=== PATIENT | male | born 1945 | race Caucasian/White ===

== ENCOUNTER 2017-04-08 11:15 | Emergency (ER) | payer OTHER, MEDICARE ==
[2017-04-08 11:20] VITALS: BP 201/101; PULSE 81; RESP 18; TEMP 98.2; O2SAT 98
[2017-04-08] MEDS ORDERED: ASPI81CH CHEW (11:28)
[2017-04-08] MEDS ORDERED: PRAV10TA PO (11:28)
[2017-04-08] MEDS ORDERED: LEVO25TA4 PO (11:28)
[2017-04-08] MEDS ORDERED: anxiety (11:30)
[2017-04-08] MEDS ORDERED: ALLO100T PO (11:30)
[2017-04-08 11:31] VITALS: BP 175/84; PULSE 79; RESP 18; O2SAT 98
[2017-04-08 11:48] LABS: AUTOMATED NEUTROPHIL # 5.2 TH/MM3 (1.8-7.7); BASOPHIL # 0.1 TH/MM3 (0-0.2); BASOPHIL % 0.8 % (0.0-2.0); EOSINOPHIL # 0.3 TH/MM3 (0-0.4); EOSINOPHIL % 3.8 % (0.0-4.0); HEMATOCRIT 46.6 % (39.0-51.0); HEMO FLAGS DIFF FINAL; LYMPH % 17.5 % (9.0-44.0); LYMPHOCYTE # 1.3 TH/MM3 (1.0-4.8); MEAN CELL VOLUME 91.2 FL (80.0-100.0); MEAN CORPUSCULAR HGB CONC 35.1 % (32.0-36.0); MONO % 5.6 % (0.0-8.0); NEUT % 72.3 % (16.0-70.0); PLATELET COUNT 172 TH/MM3 (150-450); RED BLOOD COUNT 5.11 MIL/MM3 (4.50-5.90); WHITE BLOOD COUNT 7.3 TH/MM3 (4.0-11.0)
[2017-04-08 12:00] LABS: POTASSIUM 4.1 MEQ/L (3.5-5.1)
[2017-04-08 12:02] LABS: BICARBONATE 26.6 MEQ/L (21.0-32.0)
[2017-04-08 12:05] LABS: APTT (PATIENT) 26.8 SEC (24.3-30.1); PROTHROMBIN TIME - PATIENT 10.8 SEC (9.8-11.6)
--- NOTE | 2017-04-08 12:10 | PD ---
HPI Chief Complaint: Numbness/Tingling Time Seen by Provider: 11:24 Travel History International Travel<30 days: No Contact w/Intl Traveler<30days: No Traveled to known affect area: No History of Present Illness HPI 71yo M with PMH of laryngeal cancer s/p radiation therapy presents to the ED with c/o right hand weakness and numbness since 8pm yesterday. States the numbness has improved but he is still unable to write with his right hand. Denies any weakness or numbness elsewhere. Denies any fever, chest pain, sob, n /v, abdominal pain. 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 PFSH Past Medical History Hx Anticoagulant Therapy: Yes Anxiety: Yes Cancer: Yes (throat) High Cholesterol: Yes Diminished Hearing: No Gout: Yes Radiation Therapy: Yes Thyroid Disease: Yes Influenza Vaccination: Yes ?: Not Social History Alcohol Use: Yes Tobacco Use: No Allergies-Medications (Allergen,Severity, Reaction): Coded Allergies: No Known Allergies (Unverified , 04/08/17) Reported Meds & Prescriptions Reported Meds & Active Scripts Active Reported [anxiety] 0 Allopurinol 100 Mg Tab 0 PO DAILY Levothyroxine (Levothyroxine Sodium) 25 Mcg Tab 0 PO DAILY Pravastatin 10 Mg Tab 0 PO DAILY Aspirin 81 Mg Chew 81 Mg CHEW DAILY Review of Systems Except as stated in HPI: all other systems reviewed are Neg Physical Exam Narrative GENERAL: 71yo M not in distress. SKIN: Focused skin assessment warm/dry. HEAD: Atraumatic. Normocephalic. EYES: Pupils equal and round. No scleral icterus. No injection or drainage. ENT: No nasal bleeding or discharge. Mucous membranes pink and moist. NECK: Trachea midline. No JVD. CARDIOVASCULAR: Regular rate and rhythm. No murmur appreciated. RESPIRATORY: No accessory muscle use. Clear to auscultation. Breath sounds equal bilaterally. GASTROINTESTINAL: Abdomen soft, non-tender, nondistended. MUSCULOSKELETAL: No obvious deformities. No clubbing. No cyanosis. No edema. NEUROLOGICAL: Awake and alert. No obvious cranial nerve deficits. Motor grossly within normal limits. NIH stroke scale 0. PSYCHIATRIC: Appropriate mood and affect; insight and judgment normal. Data Data Last Documented VS Vital Signs Date Time Temp Pulse Resp B/P (MAP) Pulse Ox O2 Delivery O2 Flow Rate FiO2 04/08/17 12:52 04/08/17 12:49 75 18 98 Room Air 04/08/17 11:[address] Brain W/O Iv Contrast(Rout) (04/08/17 ) Complete Blood Count With Diff (04/08/17 11:38) Basic Metabolic Panel (Bmp) (04/08/17 11:38) Prothrombin Time / Inr (Pt) (04/08/17 11:38) Act Partial Throm Time (Ptt) (04/08/17 11:38) Labs Laboratory Tests Test 04/08/17 11:20 White Blood Count 7.3 TH/MM3 Red Blood Count 5.11 MIL/MM3 Hemoglobin 16.3 GM/DL Hematocrit 46.6 % Mean Corpuscular Volume 91.2 FL Mean Corpuscular Hemoglobin 32.0 PG Mean Corpuscular Hemoglobin Concent 35.1 % Red Cell Distribution Width 13.0 % Platelet Count 172 TH/MM3 Mean Platelet Volume 7.6 FL Neutrophils (%) (Auto) 72.3 % Lymphocytes (%) (Auto) 17.5 % Monocytes (%) (Auto) 5.6 % Eosinophils (%) (Auto) 3.8 % Basophils (%) (Auto) 0.8 % Neutrophils # (Auto) 5.2 TH/MM3 Lymphocytes # (Auto) 1.3 TH/MM3 Monocytes # (Auto) 0.4 TH/MM3 Eosinophils # (Auto) 0.3 TH/MM3 Basophils # (Auto) 0.1 TH/MM3 CBC Comment DIFF FINAL Differential Comment Prothrombin Time 10.8 SEC Prothromb Time International Ratio 1.0 RATIO Activated Partial Thromboplast Time 26.8 SEC Blood Urea Nitrogen 10 MG/DL Creatinine 0.77 MG/DL Random Glucose 105 MG/DL Calcium Level 8.5 MG/DL Sodium Level 138 MEQ/L Potassium Level 4.1 MEQ/L Chloride Level 103 MEQ/L Carbon Dioxide Level 26.6 MEQ/L Anion Gap 8 MEQ/L Estimat Glomerular Filtration Rate 100 ML/MIN MDM Medical Decision Making Medical Screen Exam Complete: Yes Emergency Medical Condition: Yes Interpretation(s) Laboratory Tests Test 04/08/17 11:20 White Blood Count 7.3 TH/MM3 (4.0-11.0) Red Blood Count 5.11 MIL/MM3 (4.50-5.90) Hemoglobin 16.3 GM/DL (13.0-17.0) Hematocrit 46.6 % (39.0-51.0) Mean Corpuscular Volume 91.2 FL (80.0-100.0) Mean Corpuscular Hemoglobin 32.0 PG (27.0-34.0) Mean Corpuscular Hemoglobin Concent 35.1 % (32.0-36.0) Red Cell Distribution Width 13.0 % (11.6-17.2) Platelet Count 172 TH/MM3 (150-450) Mean Platelet Volume 7.6 FL (7.0-11.0) Neutrophils (%) (Auto) 72.3 % (16.0-70.0) Lymphocytes (%) (Auto) 17.5 % (9.0-44.0) Monocytes (%) (Auto) 5.6 % (0.0-8.0) Eosinophils (%) (Auto) 3.8 % (0.0-4.0) Basophils (%) (Auto) 0.8 % (0.0-2.0) Neutrophils # (Auto) 5.2 TH/MM3 (1.8-7.7) Lymphocytes # (Auto) 1.3 TH/MM3 (1.0-4.8) Monocytes # (Auto) 0.4 TH/MM3 (0-0.9) Eosinophils # (Auto) 0.3 TH/MM3 (0-0.4) Basophils # (Auto) 0.1 TH/MM3 (0-0.2) CBC Comment DIFF FINAL Differential Comment Prothrombin Time 10.8 SEC (9.8-11.6) Prothromb Time International Ratio 1.0 RATIO Activated Partial Thromboplast Time 26.8 SEC (24.3-30.1) Blood Urea Nitrogen 10 MG/DL (7-18) Creatinine 0.77 MG/DL (0.60-1.30) Random Glucose 105 MG/DL (74-106) Calcium Level 8.5 MG/DL (8.5-10.1) Sodium Level 138 MEQ/L (136-145) Potassium Level 4.1 MEQ/L (3.5-5.1) Chloride Level 103 MEQ/L (98-107) Carbon Dioxide Level 26.6 MEQ/L (21.0-32.0) Anion Gap 8 MEQ/L (5-15) Estimat Glomerular Filtration Rate 100 ML/MIN (>89) Last Impressions Head CT 04/08/17 0000 Signed Impressions: Service Date/Time: Saturday, April 08, 2017 12:06 - CONCLUSION: Negative for acute process. Tra Castellano MD FACR Differential Diagnosis Peripheral neuropathy vs. muscle weakness vs. CVA Narrative Course 71yo M with complaint of difficulty writing with his right hand since yesterday. Had some hand numbness that has resolved. No other symptoms. Labs reviewed, no leukocytosis. BMP unremarkable. CT brain negative. I discussed with neurologist Dr. Baldwin who recommends admission to hospitalist and CTA neck , MRI brain and further work up for this and he will consult. Pt took his aspirin today. I discussed with the patient and he is refusing further work up and said he has a neurologist from [place] that he can follow up with. States he needs to go home and he has things to take care of. Pt is signing out against medical advice. AMA: The risks of leaving against medical advice without further evaluation treatment were discussed with the patient. These risks include cardiac dysfunction, cardiac dysrhythmia, possible heart attack, possible stroke or . The patient indicated understanding of these risks and appeared to have the capacity to make this decision. Diagnosis Primary Impression: Right hand weakness Patient Instructions: General Instructions Departure Forms: Tests/Procedures Additional Instructions: Please follow up with your neurologist today or return to the ED if you change your mind. Med/Other Pt SpecificInfo: No Change to Meds Disposition: 07 AGAINST MEDICAL ADVICE Condition: Stable Dior Caballero DO Apr 08, 2017 11:40
--- NOTE | 2017-04-08 12:16 | RADRPT ---
EXAM DATE/TIME: 04/08/2017 12:06 [facility] COMPARISON: No previous studies available for comparison. INDICATIONS : Right upper extremity numbness. RADIATION DOSE: 50.25 CTDIvol (mGy) MEDICAL HISTORY : Throat cancer. SURGICAL HISTORY : None. ENCOUNTER: Initial ACUITY: 2 days PAIN SCALE: 0/10 LOCATION: cranial TECHNIQUE: Multiple contiguous axial images were obtained of the head. Using automated exposure control and adjustment of the mA and/or kV according to patient size, radiation dose was kept as low as reasonably achievable to obtain optimal diagnostic quality images. DICOM format image data is av ailable electronically for review and comparison. FINDINGS: CEREBRUM: The ventricles are normal for age. No evidence of midline shift, mass lesion, hemorrha ge or acute infarction. No extra-axial fluid collections are seen. POSTERIOR FOSSA: The cerebellum and brainstem are intact. The 4th ventricle is midline. The cer ebellopontine angle is unremarkable. EXTRACRANIAL: The visualized portion of the orbits is intact. SKULL: The calvaria is intact. No evidence of skull fracture. CONCLUSION: Negative for acute process. Tra Castellano MD FACR on April 08, 2017 at 12:14 Board Certified Radiologist. This report was verified electronically.
[2017-04-08 12:49] VITALS: BP 170/99; PULSE 75; RESP 18; O2SAT 98
== END 2017-04-08 13:01 | disposition left against medical advice (07) ==
LOC: PHED 11:15
DX: M62.81 Muscle weakness (generalized) (principal); E07.9 Disorder of thyroid, unspecified; E78.00 Pure hypercholesterolemia, unspecified; Z79.01 Long term (current) use of anticoagulants; Z85.89 Personal history of malignant neoplasm of other organs and systems; Z86.59 Personal history of other mental and behavioral disorders; Z87.39 Personal history of other diseases of the musculoskeletal system and connective tissue; Z53.29 Procedure and treatment not carried out because of patient's decision for other reasons
CPT/HCPCS: 70450; 80048; 85025; 85610; 85730; 99284